=== PATIENT | female | born 1965 | race Caucasian/White ===

== ENCOUNTER → 2023-10-03 17:01 | Outpatient (REF) | payer OTHER, SELFPAY | LOC: HWWDC 17:01 | PROVIDERS: ATTENDING PHYSICIAN Nurse Practitioner Adult Health | DX: Z12.31 Encounter for screening mammogram for malignant neoplasm of breast (principal) | CPT/HCPCS: 77063; 77067 ==

== ENCOUNTER → 2024-12-25 08:26 | Outpatient (REF) | payer OTHER, SELFPAY | LOC: HWWDC 08:26 | PROVIDERS: ATTENDING PHYSICIAN Nurse Practitioner Adult Health | DX: Z12.31 Encounter for screening mammogram for malignant neoplasm of breast (principal) | CPT/HCPCS: 77063; 77067 ==

== ENCOUNTER → 2025-05-25 10:25 | Outpatient (REF) | payer OTHER, SELFPAY | LOC: HWRAD 10:25 | DX: M79.671 Pain in right foot (principal); Z91.81 History of falling | CPT/HCPCS: 73630 ==

== ENCOUNTER → 2025-07-22 20:16 | Outpatient (REF) | payer OTHER, SELFPAY | LOC: PAVMRI 20:16 | PROVIDERS: ATTENDING PHYSICIAN Podiatrist Foot & Ankle Surgery; FAMILY PHYSICIAN Nurse Practitioner Adult Health | DX: S92.241A Displaced fracture of medial cuneiform of right foot, initial encounter for closed fracture (principal) | CPT/HCPCS: 73718 ==